=== PATIENT | male | born 1995 | race Caucasian/White ===

== ENCOUNTER 2016-05-21 18:47 | Emergency (ER) | payer OTHER ==
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
[~2016-05-21 18:47] MED LIST: NO MEDICATIONS; TYLENOL #3 PO
== END 2016-05-21 20:15 | disposition home or self-care (01) ==
LOC: SED 18:47
DX: S39.012A Strain of muscle, fascia and tendon of lower back, initial encounter (principal); F17.210 Nicotine dependence, cigarettes, uncomplicated; V49.40XA Driver injured in collision with unspecified motor vehicles in traffic accident, initial encounter; Y92.488 Other paved roadways as the place of occurrence of the external cause
CPT/HCPCS: 72100; 99283